=== PATIENT | male | born 1995 | race Caucasian/White ===

== ENCOUNTER 2022-10-18 21:37 | Emergency (ER) | payer OTHER ==
[~2022-10-18] VITALS: Ht 175.3 cm; Wt 79.4 kg
== END 2022-10-18 23:50 | disposition home or self-care (01) ==
LOC: ER 21:37
DX: K08.89 Other specified disorders of teeth and supporting structures (principal)
CPT/HCPCS: 64400; 99282-25

== ENCOUNTER 2023-07-27 23:30 | Emergency (ER) | payer OTHER ==
[~2023-07-27] VITALS: Ht 175.3 cm; Wt 84.4 kg
[2023-07-27 23:55] VITALS: BP 158/98
== END 2023-07-28 01:45 | disposition home or self-care (01) ==
LOC: ER 23:30
DX: H61.21 Impacted cerumen, right ear (principal)
CPT/HCPCS: 69209; 99282-25; A9270